=== PATIENT | male | born 1935 | race Caucasian/White ===

== ENCOUNTER → 2022-09-20 10:55 | Outpatient (CLI) | payer MEDICARE, SELFPAY ==
[2022-09-20 19:09] LABS: Hematocrit 45.1 % (41-53); Hemoglobin 15.5 g/dL (13.5-17.5); Mean Corpuscular HGB Conc 34.4 % (30-36); Mean Corpuscular Hemoglobin 32.8 PG (26-34); Mean Corpuscular Volume 95.2 fL (80-100); Platelet Count 195 X10^3/uL (150-400); Red Blood Cell Count 4.74 X10^6/uL (4.5-5.9); Red Cell Distribution Width 14.5 % (11.6-14.8); White Blood Cell Count 7.4 X10^3/uL (4.5-11.0)
== END ==
PROVIDERS: Family Provider Family Medicine; PCP Physician Assistant Medical; Visit Provider Internal Medicine
DX: I25.10 Atherosclerotic heart disease of native coronary artery without angina pectoris (principal)
CPT/HCPCS: 85027

== ENCOUNTER → 2022-10-28 10:46 | Outpatient (CLI) | payer MEDICARE, SELFPAY ==
[2022-10-28 20:44] LABS: Add Manual Diff / Slide Review NO; Basophils Absolute Auto 100 /uL (0-100); Basophils Percent Auto 0.6 % (0-2); Eosinophils Absolute Auto 100 /uL (0-450); Eosinophils Percent Auto 1.3 % (2-4); Hematocrit 46.5 % (41-53); Hemoglobin 15.8 g/dL (13.5-17.5); Lymphocytes Absolute Auto 2100 /uL (1100-4500); Lymphocytes Percent Auto 24.4 % (25-40); Mean Corpuscular HGB Conc 33.9 % (30-36); Mean Corpuscular Hemoglobin 32.5 PG (26-34); Mean Corpuscular Volume 95.8 fL (80-100); Monocytes Absolute Auto 700 /uL (0-900); Monocytes Percent Auto 8.8 % (3-14); Neutrophils Absolute Auto 5500 /uL (1500-7000); Neutrophils Percent Auto 64.9 % (50-75); Platelet Count 214 X10^3/uL (150-400); Red Blood Cell Count 4.86 X10^6/uL (4.5-5.9); Red Cell Distribution Width 14.6 % (11.6-14.8); White Blood Cell Count 8.4 X10^3/uL (4.5-11.0)
[2022-10-28 20:50] LABS: Alanine Aminotransferase 38 IU/L (<50); Albumin 4.4 g/dL (3.5-5.0); Albumin Globulin Ratio 1.3 (1.0-2.8); Alkaline Phosphatase 64 U/L (38-126); Aspartate Aminotransferase 47 IU/L (17-59); BUN Creatinine Ratio 16.4 (6-22); Bilirubin Total 1.1 mg/dL (0.2-1.3); Blood Urea Nitrogen 19 mg/dL (9-20); Calcium 10.2 mg/dL (8.4-10.2); Carbon Dioxide 25 mmol/L (22-32); Chloride 103 mmol/L (98-107); Estimated Glomerular Filt Rate > 60 mL/min (>60); Globulin 3.5 g/dL (1.7-4.1); Glucose 107 mg/dL (80-110); Sodium 141 mmol/L (137-145); Total Protein 7.9 g/dL (6.3-8.2); Uric Acid 5.4 mg/dL (3.5-8.5)
[2022-10-28 21:04] LABS: HEMOLYSIS 59 (0-50)
[2022-10-28 21:05] LABS: Potassium 3.5 mmol/L (3.4-5.1)
== END ==
PROVIDERS: Family Provider Family Medicine; PCP Physician Assistant Medical; Visit Provider Physician Assistant Medical
DX: I10 Essential (primary) hypertension (principal); E87.6 Hypokalemia
CPT/HCPCS: 80053; 84550; 85025

== ENCOUNTER → 2022-11-10 11:59 | Outpatient (CLI) | payer MEDICARE, SELFPAY ==
[2022-11-10 20:57] LABS: Cholesterol 185 mg/dL (140-199); HDL Cholesterol 27 mg/dL (40-60); LDL Cholesterol Calculated 114 mg/dL (<100); Triglycerides 222 mg/dL (35-150)
== END ==
PROVIDERS: Family Provider Family Medicine; PCP Physician Assistant Medical; Visit Provider Internal Medicine
DX: I10 Essential (primary) hypertension (principal); I25.10 Atherosclerotic heart disease of native coronary artery without angina pectoris
CPT/HCPCS: 80061

== ENCOUNTER → 2023-10-20 11:42 | Outpatient (CLI) | payer MEDICARE, SELFPAY ==
[2023-10-20 19:01] LABS: Add Manual Diff / Slide Review NO; Basophils Absolute Auto 0 /uL (0-100); Basophils Percent Auto 0.5 % (0-2); Eosinophils Absolute Auto 100 /uL (0-450); Eosinophils Percent Auto 1.2 % (2-4); Hematocrit 45.1 % (41-53); Hemoglobin 15.3 g/dL (13.5-17.5); Lymphocytes Absolute Auto 1500 /uL (1100-4500); Lymphocytes Percent Auto 22.5 % (25-40); Mean Corpuscular HGB Conc 34.1 % (30-36); Mean Corpuscular Hemoglobin 32.4 PG (26-34); Mean Corpuscular Volume 95.2 fL (80-100); Monocytes Absolute Auto 500 /uL (0-900); Monocytes Percent Auto 7.7 % (3-14); Neutrophils Absolute Auto 4500 /uL (1500-7000); Neutrophils Percent Auto 68.1 % (50-75); Platelet Count 209 X10^3/uL (150-400); Red Blood Cell Count 4.73 X10^6/uL (4.5-5.9); Red Cell Distribution Width 14.4 % (11.6-14.8); White Blood Cell Count 6.6 X10^3/uL (4.5-11.0)
[2023-10-20 19:14] LABS: Alanine Aminotransferase 28 IU/L (<50); Albumin 4.2 g/dL (3.5-5.0); Albumin Globulin Ratio 1.3 (1.0-2.8); Alkaline Phosphatase 60 U/L (38-126); Aspartate Aminotransferase 36 IU/L (17-59); BUN Creatinine Ratio 20.2 (6-22); Bilirubin Total 1.1 mg/dL (0.2-1.3); Blood Urea Nitrogen 21 mg/dL (9-20); Calcium 10.4 mg/dL (8.4-10.2); Carbon Dioxide 20 mmol/L (22-32); Chloride 105 mmol/L (98-107); Cholesterol 184 mg/dL (140-199); Estimated Glomerular Filt Rate > 60 mL/min (>60); Globulin 3.2 g/dL (1.7-4.1); Glucose 110 mg/dL (80-110); HDL Cholesterol 28 mg/dL (40-60); HEMOLYSIS 23 (0-50); LDL Cholesterol Calculated 115 mg/dL (<100); Sodium 139 mmol/L (137-145); Total Protein 7.4 g/dL (6.3-8.2); Triglycerides 203 mg/dL (35-150)
[2023-10-20 19:37] LABS: TSH w/ Reflex to FT4 1.38 uIU/mL (0.47-4.68)
== END ==
PROVIDERS: Family Provider Family Medicine; PCP Physician Assistant Medical; Visit Provider Physician Assistant Medical
DX: I25.10 Atherosclerotic heart disease of native coronary artery without angina pectoris (principal); I10 Essential (primary) hypertension; M10.9 Gout, unspecified
CPT/HCPCS: 80053; 80061; 84443; 84550; 85025

== ENCOUNTER → 2024-11-01 12:52 | Outpatient (CLI) | payer MEDICARE, SELFPAY ==
[2024-11-01 20:08] LABS: Hematocrit 43.9 % (41-53); Hemoglobin 14.6 g/dL (13.5-17.5); Mean Corpuscular HGB Conc 33.2 % (30-36); Mean Corpuscular Hemoglobin 32.3 PG (26-34); Mean Corpuscular Volume 97.3 fL (80-100); Platelet Count 220 X10^3/uL (150-400); Red Blood Cell Count 4.51 X10^6/uL (4.5-5.9); Red Cell Distribution Width 15.1 % (11.6-14.8); White Blood Cell Count 6.7 X10^3/uL (4.5-11.0)
[2024-11-01 20:19] LABS: Hemoglobin A1C% w Est Avg Glu 5.2 % (4.0-6.0)
[2024-11-01 20:20] LABS: Alanine Aminotransferase 26 IU/L (<50); Albumin 4.1 g/dL (3.5-5.0); Albumin Globulin Ratio 1.5 (1.0-2.8); Alkaline Phosphatase 64 U/L (38-126); Aspartate Aminotransferase 34 IU/L (17-59); BUN Creatinine Ratio 16.4 (6-22); Bilirubin Total 0.6 mg/dL (0.2-1.3); Blood Urea Nitrogen 20 mg/dL (9-20); Calcium 10.4 mg/dL (8.4-10.2); Carbon Dioxide 26 mmol/L (22-32); Chloride 105 mmol/L (98-107); Estimated Glomerular Filt Rate 57 mL/min (>60); Globulin 2.7 g/dL (1.7-4.1); Glucose 98 mg/dL (80-110); HEMOLYSIS < 15 (0-50); Potassium 3.8 mmol/L (3.4-5.1); Sodium 139 mmol/L (137-145); Total Protein 6.8 g/dL (6.3-8.2); Uric Acid 4.4 mg/dL (3.5-8.5)
[2024-11-01 20:56] LABS: Prostate Specific Antigen Scrn 96.4 ng/mL (0.1-4.0)
== END ==
PROVIDERS: Family Provider Family Medicine; PCP Physician Assistant Medical; Visit Provider Physician Assistant Medical
DX: R73.9 Hyperglycemia, unspecified (principal); M10.9 Gout, unspecified; Z12.5 Encounter for screening for malignant neoplasm of prostate; E78.1 Pure hyperglyceridemia; I10 Essential (primary) hypertension; E87.6 Hypokalemia
CPT/HCPCS: 80053; 83036; 84550; 85027; G0103

== ENCOUNTER → 2024-12-20 13:07 | Outpatient (CLI) | payer MEDICARE, SELFPAY | PROVIDERS: Family Provider Family Medicine; PCP Physician Assistant Medical; Visit Provider Family Medicine | DX: R39.89 Other symptoms and signs involving the genitourinary system (principal) | CPT/HCPCS: 87086 ==

== ENCOUNTER → 2025-03-05 10:29 | Outpatient (CLI) | payer MEDICARE, SELFPAY ==
--- NOTE | 2025-03-05 10:32 | DI.NM.S_ITS ---
PROCEDURE: NM BONE SCAN WHOLE BODY RADIOPHARMACEUTICAL: 21.6 mCi Tc-99m MDP IV. 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 TECHNIQUE: Delayed whole-body scintigrams were obtained approximately 3-4 hours after intravenous injection of radiotracer. Anterior and posterior views were acquired from vertex to feet. Additional left and right oblique views of the pelvis were obtained. COMPARISON: [facility], CT, CT CHEST ABD PEL W CON, 03/05/2025, 11:54. FINDINGS: Mild degenerative uptake throughout the spine with a more focal area of uptake involving the right L4 vertebral body. No other focal areas of increased uptake. Scattered areas of degenerative uptake including the shoulders, wrists and knees. IMPRESSION: Mild degenerative uptake throughout the spine with more focal area of uptake involving the right L4 vertebral body. While this may be due to focal degenerative changes, underlying lesion is not excluded. No other focal areas of uptake concerning for osseous metastatic disease. Dictated by: Babar Alaniz M.D. on 03/06/2025 at 9:36 Approved by: Babar Alaniz M.D. on 03/06/2025 at 9:43
--- NOTE | 2025-03-05 11:50 | DI.CT.S_ITS ---
PROCEDURE: CT CHEST ABD PEL W CON INDICATIONS: 89 y/o M w/ high-risk prostate cancer, please eval. TECHNIQUE: After the administration of intravenous contrast, 5 mm thick sections acquired from the lung apices to the symphysis. 5 mm coronal and sagittal reformats were performed, with additional 7 mm MIP reformats through the lungs. For radiation dose reduction, the following was used: automated exposure control, adjustment of mA and/or kV according to patient size. COMPARISON: None. FINDINGS: Image quality: Excellent. Moderate vascular calcifications of the coronary arteries and to a lesser degree aortic arch and descending aorta Multiple bilateral renal cysts right greater than left the largest left superior pole measuring up to 5 cm. Moderate nonspecific wall thickening of the distal esophagus into the stomach, unchanged some of which may be artifact from partial nondistention although esophagitis, gastritis or other process could be considered. CHEST: Moderate cardiomegaly. Moderate calcifications of the coronary arteries. Mild calcifications of the aortic arch and descending aorta. 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 No pneumothorax, no pleural effusion, no pericardial effusion, no focal consolidation. Pulmonary vasculature within normal limits. No abnormally enlarged mediastinal or hilar lymph nodes. ABDOMEN / PELVIS: Markedly abnormal lobulated enlargement of the prostate gland and seminal vesicles measuring up to approximately 9.5 cm transverse by 6.5 cm AP by 6.5 cm cc maximal dimensions. Lobulated irregular bulging into the inferior base of the urinary bladder suspicious for prosthetic neoplasm as reported in the history. Possible involvement of the anterior wall of the rectum with nonspecific wall thickening some of which may be related to artifact from partial nondistention , proctitis or other cause. Suspicion of right scrotal hydrocele partially imaged. No CT evidence of inguinal hernia. No gross abnormally enlarged inguinal, pelvic, iliac lymph nodes. Moderate calcifications of the aorta, mesenteric, proximal renal, iliac arteries. 9 mm sclerotic lesion in the right half of the L4 vertebral body is nonspecific commonly bone island however sclerotic metastasis not excluded. Diffuse heterogeneous bone marrow commonly related to hematopoietic marrow, osteopenia although infiltrative process not excluded. Multilevel degenerative changes throughout the thoracic, lumbar spine. Liver: No CT evidence of focal hepatic lesion. Liver is normal in size contour and attenuation. Gallbladder: No radiopaque gallstones or wall thickening. Biliary ducts: No biliary dilation. Pancreas: No ductal dilation. Spleen: Size is within normal limits. Adrenal Glands: No adrenal nodules. Kidneys and Ureters: No hydronephrosis. No solid mass. No complex renal cystic lesion which requires follow up. Stomach and Bowel: Diffuse diverticulosis of the colon without CT evidence of diverticulitis. Peritoneum: No abnormal intraperitoneal fluid. No free air. Ventral Wall: No significant ventral hernia. Vessels: Aorta and inferior vena cava are normal in size. IMPRESSION: Markedly abnormal appearance of the prostate gland as discussed above suspicious for neoplasm. Nonspecific wall thickening of the distal rectum/anus as discussed above. Sclerotic lesion L4 vertebral body. Other chronic findings as discussed above. Dictated by: Brooks Ortega M.D. on 03/05/2025 at 15:52 Approved by: Brooks Ortega M.D. on 03/05/2025 at 16:07
[2025-03-05 12:02] LABS: Estimated Glomerular Filt Rate 54 mL/min (>60)
== END ==
PROVIDERS: Family Provider Family Medicine; PCP Family Medicine; Referring Provider Urology; Visit Provider Urology
DX: Z01.812 Encounter for preprocedural laboratory examination (principal); C61 Malignant neoplasm of prostate; I71.21 Aneurysm of the ascending aorta, without rupture; N28.1 Cyst of kidney, acquired; I25.10 Atherosclerotic heart disease of native coronary artery without angina pectoris; I70.0 Atherosclerosis of aorta; I51.7 Cardiomegaly; M89.9 Disorder of bone, unspecified; K57.90 Diverticulosis of intestine, part unspecified, without perforation or abscess without bleeding; M47.814 Spondylosis without myelopathy or radiculopathy, thoracic region; M47.816 Spondylosis without myelopathy or radiculopathy, lumbar region; Z95.1 Presence of aortocoronary bypass graft
CPT/HCPCS: 71260; 74177; 78306; 82565; A9503; Q9967

== ENCOUNTER → 2025-10-29 13:03 | Outpatient (CLI) | payer MEDICARE, SELFPAY ==
[2025-10-29 18:36] LABS: Hematocrit 36.3 % (41-53); Hemoglobin 12.4 g/dL (13.5-17.5); Mean Corpuscular HGB Conc 34.1 % (30-36); Mean Corpuscular Hemoglobin 33.3 PG (26-34); Mean Corpuscular Volume 97.7 fL (80-100); Platelet Count 201 X10^3/uL (150-400)
[2025-10-29 18:50] LABS: HEMOLYSIS < 15 (0-50); Iron 97 ug/dL (49-181)
[2025-10-29 19:05] LABS: Percent Iron Saturation 32 % (20-50); Total Iron Binding Capacity 299 ug/dL (261-462); Transferrin 246 mg/dL (206-381)
[2025-10-29 19:29] LABS: Ferritin 111 ng/mL (18-464)
[2025-10-29 19:59] LABS: Folate > 20.0 ng/mL (2.76-20.0); Vitamin B12 268 pg/mL (239-931)
== END ==
PROVIDERS: Family Provider Family Medicine; PCP Family Medicine; Referring Provider Family Medicine; Visit Provider Family Medicine
DX: D64.9 Anemia, unspecified (principal)
CPT/HCPCS: 82607; 82728; 82746; 83540; 83550; 85027